=== PATIENT | female | born 1990 | race Caucasian/White ===

== ENCOUNTER 2017-06-13 10:50 | Emergency (ER) | payer SELFPAY ==
[~2017-06-13] VITALS: Ht 160 cm; Wt 59.2 kg
[2017-06-13 11:05] VITALS: BP 109/75
== END 2017-06-13 11:45 | disposition left against medical advice (07) ==
LOC: ED 11:40
DX: R10.9 Unspecified abdominal pain (principal); Z53.21 Procedure and treatment not carried out due to patient leaving prior to being seen by health care provider

== ENCOUNTER 2017-06-13 11:49 | Emergency (ER) | payer OTHER ==
[~2017-06-13] VITALS: Ht 160 cm; Wt 59.3 kg
[2017-06-13 12:56] LABS: BASOPHILS # (AUTO) 0.06 x10^3/uL (0-0.1); BASOPHILS % (AUTO) 1 % (0-1); EOSINOPHILS # (AUTO) 0.38 x10^3/uL (0-0.4); EOSINOPHILS % (AUTO) 5 % (1-7); LYMPHOCYTES # (AUTO) 3.74 x10^3/uL (1-3.4); LYMPHOCYTES % (AUTO) 45 % (22-44); MD NO; MEAN CORPUSCULAR HEMOGLOBIN 30.7 pg (27.0-34.8); MEAN CORPUSCULAR HGB CONC 34.3 g/dL (32.4-35.8); MEAN CORPUSCULAR VOLUME 89.6 fL (80-100); MONOCYTES % (AUTO) 6 % (2-9); NEUTROPHILS # (AUTO) 3.74 x10^3/uL (1.8-6.8); NEUTROPHILS % (AUTO) 44 % (42-75); PLATELET COUNT 380 x10^3/uL (130-400); RED CELL DISTRIBUTION WIDTH 12.5 % (9.6-15.2)
[2017-06-13 13:05] LABS: INTERNATIONAL NORMALIZED RATIO 1.11 (0.93-1.1); PROTHROMBIN TIME 11.5 Seconds (9.6-11.5)
[2017-06-13 13:08] LABS: ALANINE AMINOTRANSFERASE 15 U/L (12-78); ALBUMIN 4.4 g/dL (3.4-5.0); ANION GAP 8 mmol/L (5-15); CALCIUM 8.9 mg/dL (8.5-10.1); CHLORIDE 104 mmol/L (98-107); CREATININE 1.08 mg/dL (0.55-1.02)
[2017-06-13 13:13] LABS: ALKALINE PHOSPHATASE 60 U/L (45-117); BILIRUBIN,TOTAL 0.5 mg/dL (0.2-1.0); TOTAL PROTEIN 8.2 g/dL (6.4-8.2)
[2017-06-13] MEDS ORDERED: POTASSIUM CHLORIDE 20 MEQ TAB.ER.PRT PO ONE (14:00)
[2017-06-13] MEDS ORDERED: ACETAMINOPHEN 325 MG TABLET PO ONE (14:30)
[2017-06-13] MEDS ORDERED: ACETAMINOPHEN 325 MG TABLET ONE (14:33)
[2017-06-13] MEDS ORDERED: POTASSIUM CHLORIDE 20 MEQ TAB.ER.PRT ONE (14:34)
[2017-06-13 15:13] LABS: CULTURE INDICATED? YES; MICROSCOPIC INDICATED
[2017-06-13 16:31] VITALS: BP 134/68
== END 2017-06-13 16:34 | disposition home or self-care (01) ==
LOC: ED 16:20
DX: O03.6 Delayed or excessive hemorrhage following complete or unspecified spontaneous abortion (principal); O03.88 Urinary tract infection following complete or unspecified spontaneous abortion; K43.9 Ventral hernia without obstruction or gangrene; Z90.49 Acquired absence of other specified parts of digestive tract
CPT/HCPCS: 36415; 76705; 76830; 80053; 81001; 84702; 84703; 85025; 85610; 85730; 86850; 86900; 87086; 99285

== ENCOUNTER 2017-06-22 19:40 | Emergency (ER) | payer OTHER ==
[~2017-06-22] VITALS: Ht 160 cm; Wt 58.1 kg
[2017-06-22 19:49] VITALS: BP 119/71
== END 2017-06-22 20:52 | disposition left against medical advice (07) ==
LOC: ED 20:45
DX: K59.00 Constipation, unspecified (principal); N81.4 Uterovaginal prolapse, unspecified; K43.9 Ventral hernia without obstruction or gangrene; Z90.49 Acquired absence of other specified parts of digestive tract
CPT/HCPCS: 99283

== ENCOUNTER 2017-10-13 23:23 | Inpatient (IN) | payer MEDICAID, OTHER ==
[~2017-10-13] VITALS: Ht 160 cm; Wt 50.9 kg
[2017-10-14] MEDS ORDERED: OMNIPAQUE 350 MG/ML, 100ML BOTTLE ONE (00:29)
[2017-10-14] MEDS ORDERED: ONDANSETRON 2MG/ML, 2ML IVPush ONE (00:30)
[2017-10-14] MEDS ORDERED: SODIUM CHLORIDE FLUSH 10ML SYR IVF ONE (00:30)
[2017-10-14 00:51] LABS: MICROSCOPIC INDICATED
[2017-10-14 01:02] LABS: CULTURE INDICATED? YES
[2017-10-14 01:03] LABS: BASOPHILS # (AUTO) 0.04 x10^3/uL (0-0.1); BASOPHILS % (AUTO) 1 % (0-1); EOSINOPHILS % (AUTO) 1 % (1-7); LYMPHOCYTES % (AUTO) 34 % (22-44); MD NO; MEAN CORPUSCULAR HEMOGLOBIN 30.3 pg (27.0-34.8); MEAN CORPUSCULAR HGB CONC 33.8 g/dL (32.4-35.8); MEAN CORPUSCULAR VOLUME 89.8 fL (80-100); MEAN PLATELET VOLUME 6.9 fL (7.4-10.4); MONOCYTES # (AUTO) 0.29 x10^3/uL (0.2-0.8); MONOCYTES % (AUTO) 4 % (2-9); NEUTROPHILS # (AUTO) 4.07 x10^3/uL (1.8-6.8); NEUTROPHILS % (AUTO) 60 % (42-75); PLATELET COUNT 273 x10^3/uL (130-400); RED BLOOD COUNT 4.99 x10^6/uL (3.82-5.3); RED CELL DISTRIBUTION WIDTH 12.6 % (9.6-15.2)
[2017-10-14] MEDS ORDERED: ONDANSETRON 2MG/ML, 2ML ONE ×3 (01:10→18:59)
[2017-10-14] MEDS ORDERED: MORPHINE SULFATE 4 MG/ML, 1ML ONE ×3 (01:10→04:41)
[2017-10-14 01:16] LABS: ALANINE AMINOTRANSFERASE 23 U/L (12-78); ALBUMIN 4.5 g/dL (3.4-5.0); ANION GAP 7 mmol/L (5-15); CALCIUM 9.1 mg/dL (8.5-10.1); CHLORIDE 104 mmol/L (98-107)
[2017-10-14 01:21] LABS: ALKALINE PHOSPHATASE 53 U/L (45-117); BILIRUBIN,TOTAL 0.7 mg/dL (0.2-1.0); TOTAL PROTEIN 8.2 g/dL (6.4-8.2)
[2017-10-14] MEDS: MORPHINE SULFATE 4 MG/ML, 1ML IVPush PRN ×2 (01:25→02:38)
[2017-10-14] MEDS ORDERED: PINK LADY ENEMA 490 ML BOTTLE PR ONE (03:00)
[2017-10-14] MEDS ORDERED: ONDANSETRON ODT 4 MG PO PRN (04:30)
[2017-10-14] MEDS ORDERED: POLYETHYLENE GLYCOL 17 GM PACKET PO PRN (04:30)
[2017-10-14] MEDS ORDERED: hydrALAzine 20 MG/ML, 1ML IVPush PRN (04:30)
[2017-10-14] MEDS ORDERED: DOCUSATE 100 MG CAPSULE PO PRN (04:30)
[2017-10-14] MEDS ORDERED: ONDANSETRON 2MG/ML, 2ML IVPush PRN (04:30)
[2017-10-14] MEDS ORDERED: PROMETHAZINE 25 MG/ML, 1ML IM PRN (04:30)
[2017-10-14] MEDS ORDERED: ACETAMINOPHEN 325 MG TABLET PO PRN ×2 (04:30→19:30)
[2017-10-14 05:23] LABS: INTERNATIONAL NORMALIZED RATIO 1.03 (0.93-1.1); PROTHROMBIN TIME 10.7 Seconds (9.6-11.5)
[2017-10-14] MEDS: SODIUM CHLORIDE 0.9% 1,000 ML IV SCH ×3 (05:23→21:46)
[2017-10-14] MEDS: morphine SULFATE 10 MG/ML, 1ML IVPush PRN ×2 (05:28→22:06)
[2017-10-14 05:34] LABS: FREE T4 (FREE THYROXINE) 1.21 ng/dL (0.76-1.46); THYROID STIMULATING HORMONE 1.9 mIU/L (0.358-3.740)
[2017-10-14 05:40] LABS: HEMOGLOBIN A1C 5.4 % (4.2-6.3)
[2017-10-14] MEDS ORDERED: POLY17PO5 PO (06:26)
[2017-10-14 06:27] VITALS: BP 106/72
[2017-10-14] MEDS ORDERED: MAGNESIUM CITRATE 300ML ORAL SOL PO ONE (06:30)
[2017-10-14] MEDS: OXYcodone IR 5MG TABLET PO PRN ×2 (07:28→15:57)
[2017-10-14 13:30] VITALS: BP 106/71
[2017-10-14] MEDS ORDERED: BUPIVACAINE/PF-EPI 0.5% 1:200K ONE (17:17)
[2017-10-14] MEDS ORDERED: FENTANYL PF 250 MCG/5ML ONE (17:23)
[2017-10-14] MEDS ORDERED: MIDAZOLAM 1 MG/ML, 2ML ONE (17:23)
[2017-10-14] MEDS ORDERED: ROCURONIUM 10MG/ML,5ML ONE (17:39)
[2017-10-14] MEDS ORDERED: PROPOFOL 10 MG/ML, 20ML ONE (17:39)
[2017-10-14] MEDS ORDERED: SUCCINYLCHOLINE 20 MG/ML, 10ML ONE (17:39)
[2017-10-14] MEDS ORDERED: DEXAMETHASONE 4 MG/ML, 1ML ONE (18:59)
[2017-10-14] MEDS ORDERED: CEFOTETAN PMX 2GM/50ML 50 ML ONE (19:09)
[2017-10-14] MEDS ORDERED: MORPHINE SULFATE 4 MG/ML, 1ML IVPush PRN (19:30)
[2017-10-14] MEDS ORDERED: OXYcodone 5 MG/5 ML ORAL.SOL UDC PO PRN (19:30)
[2017-10-14] MEDS ORDERED: PROMETHAZINE 12.5 MG SUPP PR PRN (19:30)
[2017-10-14] MEDS ORDERED: MEPERIDINE/PF 25MG/0.5ML IVPush PRN (19:30)
[2017-10-14] MEDS ORDERED: ONDANSETRON ODT 8 MG PO PRN (19:30)
[2017-10-14] MEDS ORDERED: FENTANYL PF 100 MCG/2ML ONE (19:52)
[2017-10-14] MEDS ORDERED: OXYcodone 5 MG/5 ML ORAL.SOL UDC ONE (19:52)
[2017-10-14] MEDS ORDERED: ACETAMINOPHEN 650 MG/20.3 ML UDC ONE (19:55)
[2017-10-14] MEDS: FENTANYL PF 100 MCG/2ML IV PRN ×2 (20:00→20:10)
[2017-10-14] MEDS ORDERED: HYDROmorphone 2 MG/ML, 1ML ONE (20:13)
[2017-10-14] MEDS: HYDROmorphone 1 MG/ML, 1ML IV PRN ×2 (20:14→20:35)
[2017-10-14 23:25] VITALS: BP 103/67
[2017-10-15] MEDS: OXYcodone IR 5MG TABLET PO PRN ×3 (00:28→15:53)
[2017-10-15 03:16] VITALS: BP 108/69
[2017-10-15] MEDS: SODIUM CHLORIDE 0.9% 1,000 ML IV SCH (05:45)
[2017-10-15 06:10] LABS: BASOPHILS # (AUTO) 0.19 x10^3/uL (0-0.1); BASOPHILS % (AUTO) 3 % (0-1); EOSINOPHILS % (AUTO) 0 % (1-7); LYMPHOCYTES # (AUTO) 0.64 x10^3/uL (1-3.4); LYMPHOCYTES % (AUTO) 10 % (22-44); MD NO; MEAN CORPUSCULAR HEMOGLOBIN 30.4 pg (27.0-34.8); MEAN CORPUSCULAR HGB CONC 33.7 g/dL (32.4-35.8); MEAN CORPUSCULAR VOLUME 90.2 fL (80-100); MEAN PLATELET VOLUME 7.3 fL (7.4-10.4); MONOCYTES # (AUTO) 0.12 x10^3/uL (0.2-0.8); MONOCYTES % (AUTO) 2 % (2-9); NEUTROPHILS # (AUTO) 5.68 x10^3/uL (1.8-6.8); NEUTROPHILS % (AUTO) 86 % (42-75); PLATELET COUNT 232 x10^3/uL (130-400); RED BLOOD COUNT 4.45 x10^6/uL (3.82-5.3); RED CELL DISTRIBUTION WIDTH 12.6 % (9.6-15.2)
[2017-10-15 06:26] LABS: ALANINE AMINOTRANSFERASE 42 U/L (12-78); ALBUMIN 3.4 g/dL (3.4-5.0); ANION GAP 5 mmol/L (5-15); CALCIUM 8.6 mg/dL (8.5-10.1); CHLORIDE 108 mmol/L (98-107); CHOLESTEROL, TOTAL 100 mg/dL (140-239); CREATININE 0.68 mg/dL (0.55-1.02)
[2017-10-15 06:28] LABS: ALKALINE PHOSPHATASE 51 U/L (45-117); BILIRUBIN,TOTAL 0.2 mg/dL (0.2-1.0); CHOL/HDL RATIO 1.8; HDL CHOL % 57 % (28-40); HDL CHOLESTEROL (DIRECT) 57 mg/dL (40-60); LDL CHOLESTEROL,CALCULATED 33 mg/dL (54-169); LDL/HDL RATIO 0.6 (0.5-3.0); TOTAL PROTEIN 6.6 g/dL (6.4-8.2); TRIGLYCERIDES 52 mg/dL (50-200); VLDL CHOLESTEROL 10 mg/dL (0-25)
[2017-10-15 06:32] LABS: TROPONIN I < 0.015 ng/mL (0.000-0.045)
[2017-10-15 06:35] VITALS: BP 107/77
[2017-10-15 12:20] VITALS: BP 102/68
[2017-10-15 12:40] LABS: TROPONIN I < 0.015 ng/mL (0.000-0.045)
[2017-10-15] MEDS ORDERED: DOCU-131 PO (13:58)
[2017-10-15] MEDS ORDERED: POLY17PO5 PO (13:58)
== END 2017-10-15 16:15 | disposition home or self-care (01) | DRG 331 ==
LOC: ED 10-14 01:29 → EDIP 10-14 04:19 → 4NOR 10-14 05:57 → DCLOUNGE 10-15 16:00
PROVIDERS: ADMIT Internal Medicine; ATTEND Internal Medicine
PROC: 0UQG7ZZ Repair Vagina, Via Natural or Artificial Opening (ICD-10-PCS; 2017-10-14)
PROC: 0DQP7ZZ Repair Rectum, Via Natural or Artificial Opening (ICD-10-PCS; principal; 2017-10-14 18:00)
DX: N82.3 Fistula of vagina to large intestine (principal); K90.0 Celiac disease; K64.5 Perianal venous thrombosis; Z80.3 Family history of malignant neoplasm of breast; Z90.49 Acquired absence of other specified parts of digestive tract; Z87.440 Personal history of urinary (tract) infections
CPT/HCPCS: 36415; 74177; 80053; 80061; 81001; 83036; 83735; 84439; 84443; 84484; 84703; 85025; 85610; 87086; 96374; 96375; 96376; 99285; J1100; J1170; J2250; J2405; J2704; J3010; Q9967; J0330; J2270; J7030; S0074

== ENCOUNTER → 2018-03-12 | Outpatient (CLI) | payer MEDICAID ==
[~2018-03-12] MED LIST: DOCU-131 PO; No meds per pt.; POLY17PO5 PO
== END | disposition home or self-care (01) ==
LOC: STAR 13:49
PROVIDERS: ATTEND Obstetrics & Gynecology Female Pelvic Medicine and Reconstructive Surgery
DX: Z02.9 Encounter for administrative examinations, unspecified (principal)

== ENCOUNTER 2020-02-11 13:35 | Emergency (ER) | payer SELFPAY ==
[~2020-02-11] VITALS: Ht 160 cm; Wt 53.3 kg
--- NOTE | 2020-02-11 14:10 | NUR ---
PRESTONX1
--- NOTE | 2020-02-11 14:26 | NUR ---
NILX2
--- NOTE | 2020-02-11 14:42 | NUR ---
NILX3
[2020-02-11 15:25] VITALS: BP 130/74
--- NOTE | 2020-02-11 15:28 | NUR ---
TRIAGE: PT REPORTS SHE IS HAD TO LEAVE BUT NOW SHE IS BACK AND WANTS TO BE SEEN.
--- NOTE | 2020-02-11 16:03 | NUR ---
PROP AND EFFECTS DESIGNER: PER SUBEDITOR, PT HAS BEEN CALLED 2 TIMES, NO ANSWER
--- NOTE | 2020-02-11 16:13 | NUR ---
DATA COLLECTOR: PER [employer] FARMER, PT HAS BEEN CALLED FOR LAB DRAW, NO ANSWER
== END 2020-02-11 14:55 | disposition left against medical advice (07) ==
LOC: ED 14:49
DX: M54.5 Low back pain (principal); M25.552 Pain in left hip
CPT/HCPCS: 99281

== ENCOUNTER 2020-02-11 22:15 | Emergency (ER) | payer SELFPAY ==
[~2020-02-11] VITALS: Ht 160 cm; Wt 53.0 kg
[2020-02-12 02:25] VITALS: BP 115/73
== END 2020-02-12 02:29 | disposition home or self-care (01) ==
LOC: ED 02-12 00:01
DX: M25.552 Pain in left hip (principal); M54.32 Sciatica, left side
CPT/HCPCS: 99283

== ENCOUNTER 2020-02-19 09:08 | Emergency (ER) | payer MEDICAID ==
[~2020-02-19] VITALS: Ht 160 cm; Wt 53.0 kg
[2020-02-19] MEDS ORDERED: KETOROLAC 30 MG/1 ML IVPush ONE (10:00)
[2020-02-19] MEDS ORDERED: SODIUM CHLORIDE 0.9% 1,000ML IV ONE (10:00)
[2020-02-19] MEDS ORDERED: KETOROLAC 30 MG/1 ML ONE (10:35)
[2020-02-19 10:42] LABS: BASOPHILS % (AUTO) 0 % (0-1); EOSINOPHILS % (AUTO) 1 % (1-7); LYMPHOCYTES % (AUTO) 13 % (22-44); MEAN CORPUSCULAR HEMOGLOBIN 28.5 pg (27.0-34.8); MEAN CORPUSCULAR HGB CONC 33.9 g/dL (32.4-35.8); MEAN PLATELET VOLUME 6.2 fL (7.4-10.4); MONOCYTES % (AUTO) 7 % (2-9); NEUTROPHILS % (AUTO) 79 % (42-75); PLATELET COUNT 431 x10^3/uL (130-400); RED BLOOD COUNT 5.31 x10^6/uL (3.82-5.3); RED CELL DISTRIBUTION WIDTH 13.5 % (9.6-15.2)
[2020-02-19 10:44] LABS: HCT (SEDRATE) 43.2 % (34.6-47.8)
--- NOTE | 2020-02-19 10:48 | NUR ---
PT STATES SHE IS AN ACTIVE IV DRUG USER. SHE WAS SEEN RECENTLY AND DIAGNOSED WITH SIATICA. PT STATES SHE'S BEEN SITTING ON HER COUCH SINCE HER DIAGNOSIS BECAUSE SHE IS IN SO MUCH PAIN WHEN SHE TRIES TO MOVE. PT RETURNS TO THE ER TODAY BECAUSE SHE IS UNABLE TO WALK AND PAIN CONTINUES TO INCREASE. PT CONNECTED TO BP AND O2 MONITORS. PT IS ANXIOUS, AND FEARS ADDRESSED BY THIS RN. PT UPDATED ON POC. POSITIONED TO COMFORT.
--- NOTE | 2020-02-19 10:48 | NUR ---
ACTIVELY ATTEMPTING TO GAIN IV ACCESS UNTIL IT WAS OBTAINED (SEE IV ACCESS INTERVETION CHARTING).
[2020-02-19 10:50] LABS: MD NO
[2020-02-19 10:53] LABS: ALBUMIN 3.6 g/dL (3.4-5.0); ANION GAP 9 mmol/L (5-15); CALCIUM 9.2 mg/dL (8.5-10.1); CHLORIDE 99 mmol/L (98-107); CREATININE 0.66 mg/dL (0.55-1.02)
[2020-02-19] MEDS ORDERED: MORPHINE SULFATE 4 MG/ML, 1ML IVPush PRN (11:30)
[2020-02-19] MEDS ORDERED: ONDANSETRON 2MG/ML, 2ML IVPush ONE (11:30)
[2020-02-19] MEDS ORDERED: ONDANSETRON 2MG/ML, 2ML ONE (11:33)
[2020-02-19] MEDS ORDERED: MORPHINE SULFATE 4 MG/ML, 1ML ONE ×2 (11:33→13:30)
[2020-02-19] MEDS ORDERED: LORazepam 2 MG/ML, 1ML ONE (11:59)
[2020-02-19] MEDS ORDERED: LORazepam 2 MG/ML, 1ML IVPush ONE (12:00)
--- NOTE | 2020-02-19 12:05 | NUR ---
PT TO IMAGING. PT MEDICATED FOR MRI.
[2020-02-19] MEDS ORDERED: GADOTERATE 7.5 MMOL/15 ML VIAL ONE (13:00)
--- NOTE | 2020-02-19 13:04 | NUR ---
PT BACK FROM IMAGING. PT WHEELED TO BATHROOM. PT UP FROM BED WITH ASSITANCE. STATES ITS PAINFUL TO WALK.
[2020-02-19 13:34] VITALS: BP 95/56
--- NOTE | 2020-02-19 14:00 | NUR ---
PT AMBULATORY WITH WALKER AND STEADY GAIT. ERP UPDATED, AND BACK TO BEDSIDE TO UPDATE PT ON POC.
== END 2020-02-19 14:35 | disposition home or self-care (01) ==
LOC: ED 09:44
DX: S39.012A Strain of muscle, fascia and tendon of lower back, initial encounter (principal); F11.20 Opioid dependence, uncomplicated; R51.9 Headache, unspecified; X58.XXXA Exposure to other specified factors, initial encounter; Y93.89 Activity, other specified; Y92.89 Other specified places as the place of occurrence of the external cause; Y99.8 Other external cause status
CPT/HCPCS: 36415; 72149; 80048; 82040; 83605; 85025; 85651; 87040; 96361; 96374; 96375; 99285; A9575; J1885; J2060; J2270; J2405; J7030

== ENCOUNTER 2020-02-21 18:40 | Inpatient (IN) | payer MEDICAID ==
[~2020-02-21] VITALS: Ht 160 cm; Wt 56.8 kg
[2020-02-21] MEDS ORDERED: HYDROcodone/APAP 5/325 TABLET PO STA (19:29)
--- NOTE | 2020-02-21 20:35 | NUR ---
PT CAME IN CO OF LEFT HIP PAIN. WAS SEEN TWICE IN THE PREVIOUS WEEK FOR SAME. PT NEVER GOT HER RX FILLED FROM LAST TIME SHE WAS HERE. PT STATES SHE IS UNABLE TO WALK. PT ADMITS TO USING IV DRUGS THIS MORNING. PT REFUSING IV AFTER 2 FAILED ATTEMPTS
[2020-02-21 21:18] LABS: ANION GAP 5 mmol/L (5-15); CALCIUM 9.2 mg/dL (8.5-10.1); CHLORIDE 103 mmol/L (98-107); CREATININE 0.54 mg/dL (0.55-1.02)
[2020-02-21] MEDS ORDERED: MORPHINE SULFATE 4 MG/ML, 1ML IVPush ONE (21:30)
[2020-02-21] MEDS ORDERED: ONDANSETRON 2MG/ML, 2ML IVPush ONE (21:30)
[2020-02-21 21:33] LABS: BASOPHILS % (AUTO) 0 % (0-1); EOSINOPHILS % (AUTO) 1 % (1-7); LYMPHOCYTES % (AUTO) 15 % (22-44); MEAN CORPUSCULAR HEMOGLOBIN 28.8 pg (27.0-34.8); MEAN CORPUSCULAR HGB CONC 33.8 g/dL (32.4-35.8); MONOCYTES % (AUTO) 7 % (2-9); NEUTROPHILS % (AUTO) 77 % (42-75); PLATELET COUNT 448 x10^3/uL (130-400); RED CELL DISTRIBUTION WIDTH 13.5 % (9.6-15.2)
[2020-02-21] MEDS ORDERED: ONDANSETRON 2MG/ML, 2ML ONE ×2 (21:35→22:43)
[2020-02-21] MEDS ORDERED: MORPHINE SULFATE 4 MG/ML, 1ML ONE ×2 (21:36→22:44)
[2020-02-21 21:57] LABS: MD NO
--- NOTE | 2020-02-21 22:05 | NUR ---
PT RESTING IN [facility]. MRI HAS BEEN CALLED IN FOR SCAN
[2020-02-21 22:12] LABS: MICROSCOPIC INDICATED
--- NOTE | 2020-02-21 22:41 | NUR ---
PT IN MRI AT THIS TIME
[2020-02-21] MEDS ORDERED: CEFTRIAXONE PMX 1GM/50ML 50 ML IV ONE (23:30)
--- NOTE | 2020-02-21 23:39 | NUR ---
PT STILL IN MRI. WILL ADM ABX WHEN SHE RETURNS
[2020-02-21] MEDS ORDERED: GADOTERATE 5 MMOL/10 ML VIAL ONE (23:44)
[2020-02-21] MEDS ORDERED: CEFTRIAXONE PMX 1GM/50ML 50 ML ONE (23:52)
--- NOTE | 2020-02-22 00:18 | NUR ---
pt to ct at this time
--- NOTE | 2020-02-22 00:47 | NUR ---
report given to claire dee.
--- NOTE | 2020-02-22 00:49 | NUR ---
REPORT RECEIVED FROM BRITTA NOLEN
[2020-02-22] MEDS ORDERED: VANCOMYCIN PER PHARMACY MC PRN (01:00)
[2020-02-22] MEDS ORDERED: PHARMACOKINETIC CONSULTATION MC ONE (01:00)
[2020-02-22] MEDS ORDERED: VANCOMYCIN 1,300 MG in SODIUM CHLORIDE 0.9% 250 ML IV ONE (01:00)
[2020-02-22] MEDS ORDERED: VANCOMYCIN 1,300 MG in SODIUM CHLORIDE 0.9% 250 ML IV SCH (01:00)
--- NOTE | 2020-02-22 01:19 | NUR ---
REPORT GIVEN TO AUDRA NOLEN. NEED NEGATIVE RAPID COVID BEFORE PT IS ADMITTED UPSTAIRS.
[2020-02-22] MEDS ORDERED: ONDANSETRON 2MG/ML, 2ML IVPush PRN (02:00)
[2020-02-22] MEDS ORDERED: ACETAMINOPHEN 325 MG TABLET PO PRN (02:00)
[2020-02-22] MEDS ORDERED: hydrALAzine 20 MG/ML, 1ML IVPush PRN (02:00)
[2020-02-22] MEDS ORDERED: METHOCARBAMOL 500 MG TABLET PO PRN (02:00)
[2020-02-22] MEDS ORDERED: morphine SULFATE 10 MG/ML, 1ML IVPush PRN (02:00)
[2020-02-22] MEDS ORDERED: OXYcodone IR 5MG TABLET PO PRN (02:00)
[2020-02-22 02:31] LABS: HCT (SEDRATE) 36.4 % (34.6-47.8)
--- NOTE | 2020-02-22 03:00 | NUR ---
REPORT GIVEN TO RENE NOLEN
[2020-02-22] MEDS: KETOROLAC 30 MG/1 ML IV PRN (03:55)
[2020-02-22 04:04] VITALS: BP 118/65
[2020-02-22] MEDS: ASPIRIN 325 MG TABLET EC PO SCH (05:57)
[2020-02-22 07:48] VITALS: BP 100/67
[2020-02-22] MEDS: AMPICILLIN/SULBACTAM 3 GM in SODIUM CHLORIDE 0.9% 100 ML IV SCH ×3 (10:15→22:58)
[2020-02-22] MEDS: ACETAMINOPHEN 325 MG TABLET PO SCH ×2 (12:21→18:04)
[2020-02-22 12:50] VITALS: BP 101/67
[2020-02-22 13:24] LABS: AMPHETAMINE SCREEN, URINE Positive (Negative); BARBITURATE SCREEN, URINE Negative (Negative); OPIATE SCREEN, URINE Positive (Negative)
[2020-02-22 13:26] LABS: BENZODIAZEPINE SCREEN, URINE Negative (Negative); CANNABINOID SCREEN, URINE Positive (Negative); COCAINE SCREEN, URINE Negative (Negative); METHADONE SCREEN, URINE Negative (Negative)
[2020-02-22] MEDS: OXYcodone IR 5MG TABLET PO PRN ×2 (18:10→22:59)
[2020-02-22 21:33] VITALS: BP 102/65
[2020-02-23] MEDS: ACETAMINOPHEN 325 MG TABLET PO SCH ×3 (00:06→12:34)
[2020-02-23] MEDS: OXYcodone IR 5MG TABLET PO PRN ×4 (00:06→09:38)
[2020-02-23] MEDS: KETOROLAC 30 MG/1 ML IV PRN ×2 (01:32→08:52)
[2020-02-23 02:26] VITALS: BP 103/65
[2020-02-23] MEDS: AMPICILLIN/SULBACTAM 3 GM in SODIUM CHLORIDE 0.9% 100 ML IV SCH ×2 (04:15→09:38)
[2020-02-23] MEDS: ASPIRIN 325 MG TABLET EC PO SCH (05:19)
[2020-02-23 06:15] LABS: BASOPHILS % (AUTO) 0 % (0-1); EOSINOPHILS % (AUTO) 1 % (1-7); LYMPHOCYTES % (AUTO) 20 % (22-44); MEAN CORPUSCULAR HEMOGLOBIN 29.3 pg (27.0-34.8); MEAN CORPUSCULAR HGB CONC 34.3 g/dL (32.4-35.8); MEAN PLATELET VOLUME 6.1 fL (7.4-10.4); MONOCYTES % (AUTO) 8 % (2-9); NEUTROPHILS % (AUTO) 71 % (42-75); PLATELET COUNT 430 x10^3/uL (130-400); RED BLOOD COUNT 3.89 x10^6/uL (3.82-5.3); RED CELL DISTRIBUTION WIDTH 13.4 % (9.6-15.2)
[2020-02-23 06:55] LABS: MD NO
[2020-02-23 09:00] VITALS: BP 102/64
[2020-02-23 11:12] LABS: ANION GAP 5 mmol/L (5-15); CHLORIDE 110 mmol/L (98-107)
[2020-02-23 11:13] LABS: CALCIUM 8.6 mg/dL (8.5-10.1); CHOL/HDL RATIO 2.7; CHOLESTEROL, TOTAL 89 mg/dL (140-239); CREATININE 0.52 mg/dL (0.55-1.02); HDL CHOL % 37 % (28-40); HDL CHOLESTEROL (DIRECT) 33 mg/dL (40-60); LDL CHOLESTEROL,CALCULATED 43 mg/dL (54-169); LDL/HDL RATIO 1.3 (0.5-3.0); TRIGLYCERIDES 66 mg/dL (50-200); VLDL CHOLESTEROL 13 mg/dL (0-25)
[2020-02-23] MEDS ORDERED: METHADONE 10 MG TABLET PO SCH (12:30)
[2020-02-23] MEDS ORDERED: OXYcodone IR 5MG TABLET PO PRN (14:00)
== END 2020-02-23 14:26 | disposition left against medical advice (07) | DRG 540 ==
LOC: ED 19:14 → EDIP 02-22 01:35 → 5SO 02-22 03:19
PROVIDERS: ADMIT Family Medicine; ATTEND Internal Medicine
PROC: 0S9 Lower Joints, Drainage (ICD-10-PCS; principal; 2020-02-22)
DX: M46.28 Osteomyelitis of vertebra, sacral and sacrococcygeal region (principal); M00.9 Pyogenic arthritis, unspecified; N10 Acute pyelonephritis; F17.210 Nicotine dependence, cigarettes, uncomplicated; Z20.828 Contact with and (suspected) exposure to other viral communicable diseases; G89.29 Other chronic pain; M54.9 Dorsalgia, unspecified; B95.61 Methicillin susceptible Staphylococcus aureus infection as the cause of diseases classified elsewhere; F11.10 Opioid abuse, uncomplicated; F15.10 Other stimulant abuse, uncomplicated; Z53.29 Procedure and treatment not carried out because of patient's decision for other reasons; Z90.49 Acquired absence of other specified parts of digestive tract; Z90.710 Acquired absence of both cervix and uterus; Z71.6 Tobacco abuse counseling; Z79.899 Other long term (current) drug therapy
CPT/HCPCS: 36415; 70450; 70551; 74176; 80048; 80061; 80307; 81001; 85025; 85651; 86140; 87040; 87077; 87086; 87186; 87635; 87806; 93306; A9575; G0378; J0295; J0696; J1885; J2405; J3370; G0475; J2270; J7050

== ENCOUNTER 2020-02-24 04:45 | Inpatient (IN) | payer MEDICAID ==
[~2020-02-24] VITALS: Ht 160 cm; Wt 58.1 kg
--- NOTE | 2020-02-24 05:44 | NUR ---
PT CAME INTO ED TONIGHT AFTER LEAVING AMA EARLIER YESTERDAY EVENING. PT STATES "I LEFT BECAUSE MY NURSES WERE MEAN TO ME AND MY PAIN WASNT CONTROLLED." PT REPORTS EXCRUCIATING PAIN WITH INCREASED MOVEMENT OF THE LEFT HIP. PT STATES SHE ALSO HAS HAD REPEATED EPISODES OF DIARRHEA AND WAS UNABLE TO GET TO THE RESTROOM ON TIME WITH. PT PROVIDED WATER AND WARM BLANKETS FOR COMFORT, MEDICATED PER JUN. TANJA TRIPP AT FOR EVAL AND POC. PT TO BE RE ADMITTED. GREG.
[2020-02-24] MEDS ORDERED: ONDANSETRON 2MG/ML, 2ML ONE (05:47)
[2020-02-24] MEDS ORDERED: HYDROmorphone 1 MG/ML, 1ML INJ ONE (05:47)
[2020-02-24] MEDS ORDERED: SODIUM CHLORIDE FLUSH 10ML SYR IVF ONE (06:00)
[2020-02-24] MEDS ORDERED: VANCOMYCIN 1,300 MG in SODIUM CHLORIDE 0.9% 250 ML IV ONE (06:00)
[2020-02-24] MEDS ORDERED: ONDANSETRON 2MG/ML, 2ML IVPush ONE (06:00)
[2020-02-24] MEDS ORDERED: VANCOMYCIN PER PHARMACY MC ONE (06:00)
[2020-02-24] MEDS ORDERED: HYDROmorphone 2 MG/ML, 1ML IVPush PRN (06:00)
[2020-02-24] MEDS ORDERED: SODIUM CHLORIDE 0.9% 1,000 ML IV ONE ×2 (06:00→06:30)
[2020-02-24] MEDS ORDERED: HYDROmorphone 1 MG/ML, 1ML INJ IVPush PRN (06:30)
[2020-02-24] MEDS ORDERED: SODIUM CHLORIDE FLUSH 10ML SYR IVF PRN (06:30)
[2020-02-24 06:43] LABS: BASOPHILS % (AUTO) 1 % (0-1); EOSINOPHILS % (AUTO) 0 % (1-7); LYMPHOCYTES % (AUTO) 7 % (22-44); MEAN CORPUSCULAR HEMOGLOBIN 28.8 pg (27.0-34.8); MEAN CORPUSCULAR HGB CONC 33.4 g/dL (32.4-35.8); MEAN PLATELET VOLUME 5.9 fL (7.4-10.4); MONOCYTES % (AUTO) 9 % (2-9); NEUTROPHILS % (AUTO) 83 % (42-75); PLATELET COUNT 409 x10^3/uL (130-400); RED CELL DISTRIBUTION WIDTH 13.5 % (9.6-15.2)
[2020-02-24 06:45] LABS: MD NO
--- NOTE | 2020-02-24 06:54 | NUR ---
PT MEETS PINK SHEET SEPSIS CRITERIA. PT LEFT AMA LAST NIGHT, BLOOD CULTURES RESULTED PREVIOUSLY SO NOT BEING REDRAWN PER ERP ORDER. PT TO RESUME ABX TREATMENT. VANCOMYCIN. VITALS INPUT. NAD, BROTHER AT , NO CHANGE IN CONDITION, PT REPORTING HIP DISCOMFORT AND PAIN AT THIS TIME. WCTM. WAITING FOR ADMIT BED, MEDICATED PER JUN.
[2020-02-24 06:59] LABS: ANION GAP 7 mmol/L (5-15); CHLORIDE 107 mmol/L (98-107)
[2020-02-24 07:00] LABS: ALBUMIN 2.8 g/dL (3.4-5.0); CALCIUM 8.4 mg/dL (8.5-10.1); CREATININE 0.46 mg/dL (0.55-1.02)
[2020-02-24] MEDS ORDERED: ACETAMINOPHEN 325 MG TABLET PO PRN (07:00)
[2020-02-24] MEDS ORDERED: METHOCARBAMOL 500 MG TABLET PO PRN (07:00)
[2020-02-24] MEDS ORDERED: DOCUSATE 100 MG CAPSULE PO PRN (07:00)
[2020-02-24] MEDS ORDERED: ENALAPRILAT 1.25 MG/ML, 2ML IVPush PRN (07:00)
[2020-02-24] MEDS: ENOXAPARIN 40 MG/0.4 ML SQ SCH (07:00)
[2020-02-24] MEDS ORDERED: ONDANSETRON 2MG/ML, 2ML IVPush PRN (07:00)
[2020-02-24] MEDS ORDERED: VANCOMYCIN PER PHARMACY MC PRN (07:00)
[2020-02-24] MEDS ORDERED: ONDANSETRON ODT 4 MG PO PRN (07:00)
--- NOTE | 2020-02-24 07:08 | NUR ---
bedside report to Sharan NOLEN, pt care transferred at this time.
[2020-02-24 08:50] VITALS: BP 99/60
[2020-02-24] MEDS: METHADONE 10 MG TABLET PO SCH ×3 (09:20→19:55)
[2020-02-24] MEDS ORDERED: PHARMACOKINETIC CONSULTATION MC ONE (09:30)
[2020-02-24] MEDS ORDERED: PHARMACOKINETIC MONITORING MC PRN (09:30)
[2020-02-24] MEDS: AMPICILLIN/SULBACTAM 3 GM in SODIUM CHLORIDE 0.9% 100 ML IV SCH ×3 (09:35→21:37)
[2020-02-24] MEDS: OXYcodone/APAP 5/325MG TABLET PO PRN (10:32)
[2020-02-24] MEDS: VANCOMYCIN 1,200 MG in SODIUM CHLORIDE 0.9% 250 ML IV SCH ×2 (11:19→19:55)
[2020-02-24 11:26] VITALS: BP 99/60
[2020-02-24 12:40] VITALS: BP 93/53
[2020-02-24] MEDS: morphine SULFATE 10 MG/ML, 1ML IVPush PRN ×2 (13:14→17:51)
[2020-02-24] MEDS ORDERED: GADOTERATE 7.5 MMOL/15 ML VIAL ONE (15:46)
[2020-02-24 19:22] VITALS: BP 99/63
[2020-02-25 00:19] VITALS: BP 99/57
[2020-02-25] MEDS: METHADONE 10 MG TABLET PO SCH ×4 (00:56→18:29)
[2020-02-25 01:47] LABS: CLOSTRIDIUM DIFFICILE ANTIGEN POSITIVE; CLOSTRIDIUM DIFFICILE TOXIN POSITIVE (Negative)
[2020-02-25] MEDS: AMPICILLIN/SULBACTAM 3 GM in SODIUM CHLORIDE 0.9% 100 ML IV SCH ×4 (02:53→21:53)
[2020-02-25] MEDS: VANCOMYCIN 50 MG/ML ORAL SUSP PO SCH ×4 (02:53→21:53)
[2020-02-25] MEDS: VANCOMYCIN 1,200 MG in SODIUM CHLORIDE 0.9% 250 ML IV SCH ×3 (03:52→20:03)
[2020-02-25] MEDS: morphine SULFATE 10 MG/ML, 1ML IVPush PRN ×3 (05:17→21:54)
[2020-02-25 05:58] LABS: BASOPHILS % (AUTO) 0 % (0-1); EOSINOPHILS % (AUTO) 1 % (1-7); LYMPHOCYTES % (AUTO) 20 % (22-44); MEAN CORPUSCULAR HEMOGLOBIN 29.2 pg (27.0-34.8); MEAN CORPUSCULAR HGB CONC 33.7 g/dL (32.4-35.8); MONOCYTES % (AUTO) 9 % (2-9); NEUTROPHILS % (AUTO) 70 % (42-75); PLATELET COUNT 366 x10^3/uL (130-400); RED BLOOD COUNT 3.53 x10^6/uL (3.82-5.3); RED CELL DISTRIBUTION WIDTH 13.6 % (9.6-15.2)
[2020-02-25 06:00] LABS: ANION GAP 5 mmol/L (5-15); CALCIUM 8.1 mg/dL (8.5-10.1); CHLORIDE 108 mmol/L (98-107); CREATININE 0.46 mg/dL (0.55-1.02)
[2020-02-25 06:01] LABS: MD NO
[2020-02-25 06:59] VITALS: BP 95/58
[2020-02-25] MEDS: ENOXAPARIN 40 MG/0.4 ML SQ SCH (07:56)
[2020-02-25] MEDS: ONDANSETRON 2MG/ML, 2ML IVPush PRN ×2 (07:58→18:29)
[2020-02-25] MEDS ORDERED: METHADONE 10 MG TABLET ONE (12:26)
[2020-02-25 13:56] VITALS: BP 96/61
[2020-02-25] MEDS ORDERED: FENTANYL PF 100 MCG/2ML ONE (16:33)
[2020-02-25] MEDS ORDERED: NALOXONE 1 MG/ML, 2ML ONE (16:33)
[2020-02-25 19:08] VITALS: BP 92/50
[2020-02-25 23:01] VITALS: BP 102/63
[2020-02-26 00:55] VITALS: BP 115/64
[2020-02-26] MEDS: METHADONE 10 MG TABLET PO SCH ×4 (01:09→20:36)
[2020-02-26] MEDS: AMPICILLIN/SULBACTAM 3 GM in SODIUM CHLORIDE 0.9% 100 ML IV SCH ×3 (04:05→17:53)
[2020-02-26] MEDS: VANCOMYCIN 50 MG/ML ORAL SUSP PO SCH ×3 (04:05→17:49)
[2020-02-26] MEDS: VANCOMYCIN 1,200 MG in SODIUM CHLORIDE 0.9% 250 ML IV SCH ×2 (04:49→12:57)
[2020-02-26 08:19] VITALS: BP 96/60
[2020-02-26] MEDS: ENOXAPARIN 40 MG/0.4 ML SQ SCH (08:47)
[2020-02-26] MEDS: OXYcodone/APAP 5/325MG TABLET PO PRN ×2 (08:58→17:50)
[2020-02-26 13:37] VITALS: BP 99/64
[2020-02-26 19:46] VITALS: BP 101/58
[2020-02-26] MEDS: VANCOMYCIN 1,100 MG in SODIUM CHLORIDE 0.9% 250 ML IV SCH (20:39)
[2020-02-27] MEDS: AMPICILLIN/SULBACTAM 3 GM in SODIUM CHLORIDE 0.9% 100 ML IV SCH ×4 (00:16→19:39)
[2020-02-27] MEDS: VANCOMYCIN 50 MG/ML ORAL SUSP PO SCH ×4 (00:17→18:29)
[2020-02-27 02:58] VITALS: BP 99/63
[2020-02-27] MEDS: METHADONE 10 MG TABLET PO SCH ×4 (03:06→19:39)
[2020-02-27] MEDS: VANCOMYCIN 1,100 MG in SODIUM CHLORIDE 0.9% 250 ML IV SCH (05:13)
[2020-02-27 07:30] VITALS: BP 108/70
[2020-02-27] MEDS: ENOXAPARIN 40 MG/0.4 ML SQ SCH (08:31)
[2020-02-27 13:46] VITALS: BP 105/72
[2020-02-27] MEDS: OXYcodone/APAP 5/325MG TABLET PO PRN (18:13)
[2020-02-27 19:45] VITALS: BP 116/76
[2020-02-28 01:29] VITALS: BP 111/70
[2020-02-28] MEDS: METHADONE 10 MG TABLET PO SCH ×4 (01:33→20:06)
[2020-02-28] MEDS: VANCOMYCIN 50 MG/ML ORAL SUSP PO SCH ×4 (01:33→20:06)
[2020-02-28] MEDS: AMPICILLIN/SULBACTAM 3 GM in SODIUM CHLORIDE 0.9% 100 ML IV SCH ×2 (01:34→08:45)
[2020-02-28] MEDS: OXYcodone/APAP 5/325MG TABLET PO PRN ×2 (04:30→19:19)
[2020-02-28 06:41] LABS: MEAN CORPUSCULAR HEMOGLOBIN 29.4 pg (27.0-34.8); MEAN CORPUSCULAR HGB CONC 34.1 g/dL (32.4-35.8); MEAN PLATELET VOLUME 6.1 fL (7.4-10.4); PLATELET COUNT 327 x10^3/uL (130-400); RED BLOOD COUNT 3.24 x10^6/uL (3.82-5.3); RED CELL DISTRIBUTION WIDTH 13.4 % (9.6-15.2)
[2020-02-28 06:42] LABS: HCT (SEDRATE) 28.1 % (34.6-47.8)
[2020-02-28 06:48] LABS: CHLORIDE 106 mmol/L (98-107)
[2020-02-28 07:00] LABS: ALANINE AMINOTRANSFERASE 16 U/L (12-78); ALBUMIN 2.3 g/dL (3.4-5.0); ALKALINE PHOSPHATASE 74 U/L (45-117); ANION GAP 3 mmol/L (5-15); BILIRUBIN,TOTAL 0.1 mg/dL (0.2-1.0); C-REACTIVE PROTEIN, QUANT 2.55 mg/dL (0.02-0.49); CALCIUM 8.1 mg/dL (8.5-10.1); CREATININE 0.49 mg/dL (0.55-1.02); TOTAL PROTEIN 5.9 g/dL (6.4-8.2)
[2020-02-28 07:58] VITALS: BP 108/73
[2020-02-28] MEDS: ENOXAPARIN 40 MG/0.4 ML SQ SCH (08:46)
[2020-02-28 11:26] LABS: MD YES
[2020-02-28 11:27] LABS: BAND#(MANUAL) 0.11 x10^3/uL; BANDS%(MANUAL) 2 % (0-7); EOS#(MANUAL) 0.11 x10^3/uL (0.0-0.4); EOS% (MANUAL) 2 % (1-7); LYMPH#(MANUAL) 2.16 x10^3/uL (1-3.4); LYMPHS% (MANUAL) 40 % (22-44); MONOS#(MANUAL) 0.22 x10^3/uL (0.3-2.7); MONOS% (MANUAL) 4 % (2-9); SEG#(MANUAL) 2.81 x10^3/uL (1.8-6.8); SEGS% (MANUAL) 52 % (42-75)
[2020-02-28 11:28] LABS: <PLATELET ESTIMATE> ADEQUATE; <PLT MORPHOLOGY> NORMAL PLT MORPH; <RBC MORPHOLOGY> NORMAL
[2020-02-28] MEDS: CEFAZOLIN PMX 2GM/50ML 50 ML IVPB SCH ×2 (13:37→23:17)
[2020-02-28 14:00] VITALS: BP 101/76
[2020-02-28] MEDS: GABAPENTIN 300 MG CAPSULE PO SCH ×2 (17:00→21:00)
[2020-02-28 18:46] VITALS: BP 115/75
[2020-02-29] MEDS: VANCOMYCIN 50 MG/ML ORAL SUSP PO SCH ×4 (02:14→20:36)
[2020-02-29] MEDS: METHADONE 10 MG TABLET PO SCH ×4 (02:14→20:36)
[2020-02-29 03:51] VITALS: BP 127/84
[2020-02-29] MEDS: CEFAZOLIN PMX 2GM/50ML 50 ML IVPB SCH ×3 (06:02→23:34)
[2020-02-29 07:43] VITALS: BP 115/73
[2020-02-29] MEDS: ENOXAPARIN 40 MG/0.4 ML SQ SCH (09:11)
[2020-02-29] MEDS: GABAPENTIN 300 MG CAPSULE PO SCH ×3 (09:11→20:37)
[2020-02-29 13:52] VITALS: BP 109/63
[2020-02-29 19:05] VITALS: BP 106/67
[2020-02-29] MEDS: OXYcodone/APAP 5/325MG TABLET PO PRN (21:21)
[2020-03-01 00:23] VITALS: BP 105/69
[2020-03-01] MEDS: VANCOMYCIN 50 MG/ML ORAL SUSP PO SCH ×4 (02:39→19:52)
[2020-03-01] MEDS: METHADONE 10 MG TABLET PO SCH ×4 (02:39→19:52)
[2020-03-01] MEDS: CEFAZOLIN PMX 2GM/50ML 50 ML IVPB SCH ×3 (06:06→22:00)
[2020-03-01 07:05] VITALS: BP 105/68
[2020-03-01] MEDS: GABAPENTIN 300 MG CAPSULE PO SCH ×3 (08:47→19:52)
[2020-03-01] MEDS: ENOXAPARIN 40 MG/0.4 ML SQ SCH (08:48)
[2020-03-01 12:53] VITALS: BP 113/74
[2020-03-01] MEDS ORDERED: METHADONE 5 MG TABLET ONE (14:03)
[2020-03-01 19:55] VITALS: BP 103/65
[2020-03-01] MEDS: OXYcodone/APAP 5/325MG TABLET PO PRN (23:31)
[2020-03-02] MEDS: VANCOMYCIN 50 MG/ML ORAL SUSP PO SCH ×4 (02:33→20:30)
[2020-03-02] MEDS: METHADONE 10 MG TABLET PO SCH ×4 (02:33→20:29)
[2020-03-02 03:30] VITALS: BP 110/71
[2020-03-02] MEDS: CEFAZOLIN PMX 2GM/50ML 50 ML IVPB SCH ×3 (05:58→22:21)
[2020-03-02 07:42] VITALS: BP 99/65
[2020-03-02] MEDS: ENOXAPARIN 40 MG/0.4 ML SQ SCH (09:10)
[2020-03-02] MEDS: GABAPENTIN 300 MG CAPSULE PO SCH ×3 (09:10→20:30)
[2020-03-02 15:34] VITALS: BP 114/75
[2020-03-02 19:02] VITALS: BP 123/83
[2020-03-03 01:28] VITALS: BP 119/78
[2020-03-03] MEDS: VANCOMYCIN 50 MG/ML ORAL SUSP PO SCH ×4 (02:07→20:32)
[2020-03-03] MEDS: METHADONE 10 MG TABLET PO SCH ×4 (02:07→20:32)
[2020-03-03] MEDS: CEFAZOLIN PMX 2GM/50ML 50 ML IVPB SCH ×3 (05:46→22:26)
[2020-03-03 07:56] VITALS: BP 118/71
[2020-03-03] MEDS: ENOXAPARIN 40 MG/0.4 ML SQ SCH (08:00)
[2020-03-03] MEDS: GABAPENTIN 300 MG CAPSULE PO SCH ×3 (10:20→20:32)
[2020-03-03 14:59] VITALS: BP 115/75
[2020-03-03 18:49] VITALS: BP 117/74
[2020-03-03] MEDS: OXYcodone/APAP 5/325MG TABLET PO PRN (22:29)
[2020-03-03] MEDS: TRAZODONE 50MG TABLET PO PRN (22:29)
[2020-03-04 00:16] VITALS: BP 113/75
[2020-03-04] MEDS: METHADONE 10 MG TABLET PO SCH ×4 (02:04→21:19)
[2020-03-04] MEDS: VANCOMYCIN 50 MG/ML ORAL SUSP PO SCH ×4 (02:05→21:19)
[2020-03-04] MEDS: CEFAZOLIN PMX 2GM/50ML 50 ML IVPB SCH ×3 (05:54→21:20)
[2020-03-04 07:06] VITALS: BP 102/54
[2020-03-04] MEDS: ENOXAPARIN 40 MG/0.4 ML SQ SCH (08:25)
[2020-03-04] MEDS: GABAPENTIN 300 MG CAPSULE PO SCH ×3 (08:25→21:19)
[2020-03-04 14:47] VITALS: BP 104/68
[2020-03-04 21:00] VITALS: BP 97/58
[2020-03-04] MEDS: TRAZODONE 50MG TABLET PO PRN (21:19)
[2020-03-05] MEDS: VANCOMYCIN 50 MG/ML ORAL SUSP PO SCH ×4 (01:53→20:38)
[2020-03-05 02:01] VITALS: BP 99/66
[2020-03-05] MEDS: METHADONE 10 MG TABLET PO SCH ×4 (02:01→20:38)
[2020-03-05] MEDS: CEFAZOLIN PMX 2GM/50ML 50 ML IVPB SCH ×3 (05:54→23:40)
[2020-03-05 06:08] LABS: CREATININE 0.66 mg/dL (0.55-1.02)
[2020-03-05 07:16] VITALS: BP 101/64
[2020-03-05] MEDS ORDERED: METHADONE 5 MG TABLET ONE ×2 (07:46→13:43)
[2020-03-05] MEDS: ENOXAPARIN 40 MG/0.4 ML SQ SCH (07:51)
[2020-03-05] MEDS: GABAPENTIN 300 MG CAPSULE PO SCH ×3 (07:52→20:38)
[2020-03-05] MEDS: OXYcodone/APAP 5/325MG TABLET PO PRN ×2 (09:03→20:48)
[2020-03-05] MEDS ORDERED: KETOROLAC 30 MG/1 ML IVPush PRN (13:30)
[2020-03-05 13:57] VITALS: BP 92/68
[2020-03-05 20:27] VITALS: BP 102/67
[2020-03-05] MEDS: TRAZODONE 50MG TABLET PO PRN (23:45)
[2020-03-06 01:42] VITALS: BP 105/68
[2020-03-06] MEDS: METHADONE 10 MG TABLET PO SCH ×4 (01:46→20:54)
[2020-03-06] MEDS: OXYcodone/APAP 5/325MG TABLET PO PRN (05:44)
[2020-03-06] MEDS: CEFAZOLIN PMX 2GM/50ML 50 ML IVPB SCH (05:44)
[2020-03-06 06:45] LABS: HCT (SEDRATE) 30.9 % (34.6-47.8)
[2020-03-06 06:47] LABS: ALBUMIN 2.8 g/dL (3.4-5.0); ANION GAP 6 mmol/L (5-15); CALCIUM 8.4 mg/dL (8.5-10.1); CHLORIDE 108 mmol/L (98-107)
[2020-03-06 06:51] LABS: ALANINE AMINOTRANSFERASE 19 U/L (12-78); ALKALINE PHOSPHATASE 67 U/L (45-117); BILIRUBIN,TOTAL 0.1 mg/dL (0.2-1.0); C-REACTIVE PROTEIN, QUANT 0.31 mg/dL (0.02-0.49); CREATININE 0.71 mg/dL (0.55-1.02); TOTAL PROTEIN 6.6 g/dL (6.4-8.2)
[2020-03-06 07:19] VITALS: BP 100/52
[2020-03-06] MEDS: ENOXAPARIN 40 MG/0.4 ML SQ SCH (07:53)
[2020-03-06] MEDS: GABAPENTIN 300 MG CAPSULE PO SCH ×3 (07:53→20:54)
[2020-03-06] MEDS: VANCOMYCIN 50 MG/ML ORAL SUSP PO SCH ×2 (08:14→20:56)
[2020-03-06 09:09] LABS: BASOPHILS % (AUTO) 1 % (0-1); EOSINOPHILS % (AUTO) 2 % (1-7); LYMPHOCYTES % (AUTO) 46 % (22-44); MEAN CORPUSCULAR HEMOGLOBIN 29.7 pg (27.0-34.8); MEAN CORPUSCULAR HGB CONC 34.1 g/dL (32.4-35.8); MEAN PLATELET VOLUME 6.4 fL (7.4-10.4); MONOCYTES % (AUTO) 8 % (2-9); NEUTROPHILS % (AUTO) 43 % (42-75); PLATELET COUNT 276 x10^3/uL (130-400); RED BLOOD COUNT 3.56 x10^6/uL (3.82-5.3)
[2020-03-06 09:15] LABS: MD SCAN
[2020-03-06] MEDS: AMPICILLIN/SULBACTAM 3 GM in SODIUM CHLORIDE 0.9% 100 ML IV SCH ×3 (11:34→23:28)
[2020-03-06 17:03] VITALS: BP 106/65
[2020-03-06 21:00] VITALS: BP 97/64
[2020-03-07 01:55] VITALS: BP 111/72
[2020-03-07] MEDS: METHADONE 10 MG TABLET PO SCH ×4 (02:23→20:17)
[2020-03-07] MEDS: AMPICILLIN/SULBACTAM 3 GM in SODIUM CHLORIDE 0.9% 100 ML IV SCH ×4 (05:15→23:41)
[2020-03-07 06:57] VITALS: BP 116/74
[2020-03-07] MEDS ORDERED: METHADONE 5 MG TABLET ONE (10:00)
[2020-03-07] MEDS: ENOXAPARIN 40 MG/0.4 ML SQ SCH (10:00)
[2020-03-07] MEDS: GABAPENTIN 300 MG CAPSULE PO SCH ×3 (10:05→20:17)
[2020-03-07] MEDS: VANCOMYCIN 50 MG/ML ORAL SUSP PO SCH ×2 (11:14→20:17)
[2020-03-07 13:15] VITALS: BP 97/61
[2020-03-07 19:39] VITALS: BP 116/74
[2020-03-07] MEDS: OXYcodone/APAP 5/325MG TABLET PO PRN (21:28)
[2020-03-08 00:47] VITALS: BP 108/67
[2020-03-08] MEDS: METHADONE 10 MG TABLET PO SCH ×4 (02:00→20:59)
[2020-03-08] MEDS: AMPICILLIN/SULBACTAM 3 GM in SODIUM CHLORIDE 0.9% 100 ML IV SCH ×4 (06:10→23:46)
[2020-03-08] MEDS: VANCOMYCIN 50 MG/ML ORAL SUSP PO SCH ×2 (09:48→20:59)
[2020-03-08] MEDS: GABAPENTIN 300 MG CAPSULE PO SCH ×3 (09:48→20:59)
[2020-03-08] MEDS: ENOXAPARIN 40 MG/0.4 ML SQ SCH (09:48)
[2020-03-08 14:27] VITALS: BP 110/69
[2020-03-08 21:33] VITALS: BP 142/92
[2020-03-09 00:59] VITALS: BP 117/73
[2020-03-09] MEDS: METHADONE 10 MG TABLET PO SCH ×4 (02:29→20:22)
[2020-03-09] MEDS: AMPICILLIN/SULBACTAM 3 GM in SODIUM CHLORIDE 0.9% 100 ML IV SCH ×3 (05:49→17:33)
[2020-03-09 06:48] VITALS: BP 101/65
[2020-03-09] MEDS: ENOXAPARIN 40 MG/0.4 ML SQ SCH (08:13)
[2020-03-09] MEDS: VANCOMYCIN 50 MG/ML ORAL SUSP PO SCH ×2 (08:13→20:22)
[2020-03-09] MEDS: GABAPENTIN 300 MG CAPSULE PO SCH ×3 (08:13→20:22)
[2020-03-09] MEDS ORDERED: METHADONE 5 MG TABLET ONE (13:43)
[2020-03-09 13:50] VITALS: BP 114/76
[2020-03-09 19:10] VITALS: BP 124/76
[2020-03-10 00:23] VITALS: BP 124/69
[2020-03-10] MEDS: AMPICILLIN/SULBACTAM 3 GM in SODIUM CHLORIDE 0.9% 100 ML IV SCH ×4 (00:40→17:45)
[2020-03-10] MEDS: METHADONE 10 MG TABLET PO SCH ×4 (01:52→20:02)
[2020-03-10 07:32] VITALS: BP 101/60
[2020-03-10] MEDS: VANCOMYCIN 50 MG/ML ORAL SUSP PO SCH ×2 (08:33→20:03)
[2020-03-10] MEDS: ENOXAPARIN 40 MG/0.4 ML SQ SCH (08:33)
[2020-03-10] MEDS: GABAPENTIN 300 MG CAPSULE PO SCH ×3 (08:33→20:02)
[2020-03-10] MEDS: OXYcodone/APAP 5/325MG TABLET PO PRN (11:50)
[2020-03-10 13:21] VITALS: BP 105/69
[2020-03-10 18:26] VITALS: BP 115/79
[2020-03-11] MEDS: AMPICILLIN/SULBACTAM 3 GM in SODIUM CHLORIDE 0.9% 100 ML IV SCH ×4 (00:04→17:44)
[2020-03-11 00:47] VITALS: BP 105/66
[2020-03-11] MEDS: METHADONE 10 MG TABLET PO SCH ×4 (02:30→20:32)
[2020-03-11 07:09] VITALS: BP 101/62
[2020-03-11] MEDS: VANCOMYCIN 50 MG/ML ORAL SUSP PO SCH ×2 (08:31→20:31)
[2020-03-11] MEDS: GABAPENTIN 300 MG CAPSULE PO SCH ×2 (08:31→16:11)
[2020-03-11] MEDS: ENOXAPARIN 40 MG/0.4 ML SQ SCH (08:32)
[2020-03-11 12:08] VITALS: BP 118/72
[2020-03-11 18:49] VITALS: BP 152/96
== END 2020-03-11 21:42 | disposition left against medical advice (07) | DRG 872 ==
LOC: ED 05:38 → EDIP 06:25 → 3N 08:40
PROVIDERS: ADMIT Family Medicine; ATTEND Family Medicine
PROC: 0SJ Lower Joints, Inspection (ICD-10-PCS; principal; 2020-02-25)
DX: A41.01 Sepsis due to Methicillin susceptible Staphylococcus aureus (principal); A04.72 Enterocolitis due to Clostridium difficile, not specified as recurrent; F11.20 Opioid dependence, uncomplicated; M00.9 Pyogenic arthritis, unspecified; M46.28 Osteomyelitis of vertebra, sacral and sacrococcygeal region; Q21.1 Atrial septal defect; F15.10 Other stimulant abuse, uncomplicated; L27.0 Generalized skin eruption due to drugs and medicaments taken internally; M06.9 Rheumatoid arthritis, unspecified; M19.90 Unspecified osteoarthritis, unspecified site; R26.2 Difficulty in walking, not elsewhere classified; Z20.828 Contact with and (suspected) exposure to other viral communicable diseases; K90.0 Celiac disease; Z72.0 Tobacco use; Z90.710 Acquired absence of both cervix and uterus; Z91.19 Patient's noncompliance with other medical treatment and regimen
CPT/HCPCS: 36415; 89055; 96365; 96366; 96375; 99285; J3370; 20610; 72156; 72157; 75989; 80048; 80053; 80202; 82040; 82565; 85025; 85651; 86140; 87015; 87040; 87070; 87075; 87102; 87116; 87205; 87206; 87324; G0378; J0295; J0690; J1170; J1650; J2405; J3010; A9575; J2270; J2310; J7030; J7050

== ENCOUNTER 2020-04-19 14:12 | Emergency (ER) | payer MEDICAID ==
[~2020-04-19] VITALS: Ht 160 cm; Wt 55.4 kg
[2020-04-19 15:10] LABS: BASOPHILS % (AUTO) 1 % (0-1); EOSINOPHILS % (AUTO) 2 % (1-7); LYMPHOCYTES % (AUTO) 34 % (22-44); MEAN CORPUSCULAR HEMOGLOBIN 29.5 pg (27.0-34.8); MEAN CORPUSCULAR HGB CONC 34.1 g/dL (32.4-35.8); MEAN PLATELET VOLUME 6.9 fL (7.4-10.4); MONOCYTES % (AUTO) 6 % (2-9); NEUTROPHILS % (AUTO) 57 % (42-75); PLATELET COUNT 337 x10^3/uL (130-400); RED BLOOD COUNT 4.88 x10^6/uL (3.82-5.3); RED CELL DISTRIBUTION WIDTH 14.3 % (9.6-15.2)
[2020-04-19 15:12] LABS: MD NO
[2020-04-19 15:18] LABS: ALBUMIN 3.9 g/dL (3.4-5.0); ANION GAP 5 mmol/L (5-15); CHLORIDE 108 mmol/L (98-107); CREATININE 0.79 mg/dL (0.55-1.02)
--- NOTE | 2020-04-19 17:21 | NUR ---
turntable operator: attempted to call pt to room from lobby, no answer
--- NOTE | 2020-04-19 17:41 | NUR ---
actuarial analyst: pt from lobby to room 20
[2020-04-19 19:11] LABS: HCT (SEDRATE) 42.2 % (34.6-47.8)
[2020-04-19 19:29] VITALS: BP 98/52
== END 2020-04-19 20:52 | disposition home or self-care (01) ==
LOC: ED 18:35
DX: M25.552 Pain in left hip (principal); R11.10 Vomiting, unspecified; R50.9 Fever, unspecified
CPT/HCPCS: 36415; 80048; 82040; 85025; 85651; 86140; 99284; 99285